=== PATIENT | male | born 1955 | race Caucasian/White ===

== ENCOUNTER 2024-02-19 07:23 | Outpatient (REF) | payer MEDICARE, SELFPAY ==
[2024-02-19 17:08] LABS: HGB 11.8 g/dL (13.5-17.5); MCH 32.9 pg (27.0-33.0); MCHC 33.7 % (32.0-36.0); MCV 98 fL (80-95); Platelet Count 289 10^3/uL (130-400); RBC 3.59 10^6/uL (4.36-5.78); RDW 12.2 % (11.8-14.1); RDW-SD 43.7 fL; WBC 11.43 10^3/uL (4.4-10.8)
[2024-02-19 17:54] LABS: ALT 22 U/L (16-63); AST 20 U/L (15-37); Albumin 2.6 g/dL (3.4-5.0); Alkaline Phosphatase 102 U/L (46-116); Anion Gap 12.3 mmol/L (3-11); BUN 51 mg/dL (7-18); Bilirubin, Total 0.32 mg/dL (0.2-1.0); CO2 20.7 mmol/L (21.0-32.0); CREATININE 2.3 mg/dL (0.70-1.30); Calcium 8.7 mg/dL (8.5-10.1); Chloride 104 mmol/L (98-107); Estimated GFR 30.17 (mL/min/1.73m2); Glucose 178 mg/dL (74-106); Potassium 4.6 mmol/L (3.5-5.1); Sodium 137 mmol/L (136-145); Total Protein 6.1 g/dL (6.4-8.2)
== END 2024-02-19 07:24 | disposition home or self-care (01) ==
LOC: LBN 07:23
PROVIDERS: PCP Nurse Practitioner; Visit Provider Family Medicine
DX: N28.89 Other specified disorders of kidney and ureter (principal)
CPT/HCPCS: 80053; 85027